=== PATIENT | female | born 1940 | race Caucasian/White ===

== ENCOUNTER 2016-06-15 14:23 | Inpatient (IN) | payer MEDICARE ==
[~2016-06-15] VITALS: Ht 157.5 cm; Wt 96.3 kg
[~2016-06-15 14:23] MED LIST: ALEVE ARTHRITI220 MG PO; AMARYL2 MG PO; AMOX/K CLAV875 M1 PO; APRESOLINE50 MG PO; ASPIRIN EC81 MG PO; FLAX SEED1000 MG PO; FLUARIX QUADRIV1 IN1 IM; HYDRALAZINE50 MG PO; LEVOTHYROXIN175 MC1 PO; LEVOTHYROXIN200 MC2 PO; LISINOPRIL20 MG PO; MELOXICAM15 MG PO; MILK OF MAG30 ML/UDC PO; PRILOSEC40 MG PO; PROAIR HFA IN; TYLENOL325 M2 PO; VERAPAMIL240 M1 PO
[2016-06-22] VITALS (8 sets, daily range): BP systolic 137–199; BP diastolic 52–146
[2016-06-22] MEDS ORDERED: STOOL SOFTENER100 M1 PO (10:20)
[2016-06-22] MEDS ORDERED: FUROSEMIDE40 MG PO (10:22)
[2016-06-22] MEDS ORDERED: KLOR-CON SPRIN10 MEQ (10:24)
--- NOTE | 2016-06-22 19:05 | NUR ---
PT. ARRIVES BY BED FROM OR STAFF. PT. IS AWAKE, ALERT, ORIENTED, BUT DROWSY. REPORTS MINIMAL PAIN AT THIS TIME. ON ARRIVAL SWELLING/EDEMA NOTED TO LT. HAND AT SITE OF PRIOR INFILTRATED IV PER OR STAFF. PT. HAS #22 TO LT. UPPER SHOULDER AREA. SURROUNDING TISSUE THERE APPEARS SWOLLEN AND EDEMATOUS. NO BLOOD RETURN AND DIFFICULT FLUSH NOTED TO LT. UPPER ARM. HIGHLY SUSPICIOUS FOR INFILTRATED IV TO THIS LOCATION WELL. PT. WITH COARSE LUNG SOUNDS EXPECIALLY TO BASES. PT. IS ABLE TO COULD WITH ONLY MINIMAL FORCE. KOVACS CATHETER NOTED WITH CLEAR YELLOW URINE ON ARRIVAL. PT. REPORTS LT. SIDED WEAKNESS FROM A PRIOR CVA. STATES SHE IS UNABLE TO WALK. SOME CONTRACTURES NOTED TO LT. HAND. IV DISCTONINUED TO LT. UPPER SHOULDER AND NEW IV PLACED TO LT. INDEX FINGER #24 X 1 ATTEMPT. PT. HAS POOR VENOUS ACCESS PER HER REPORTED HX. PT. STATES WITH MINIMAL PAIN AT THIS TIME. 3/10. LOWER EXT EDEMA NOTED. 2/3 +. ARRIVES WITH SCD'S IN PLACE. CONNECTED TO UNIT ON ARRIVAL. BP STABLE AT 160/56 ON ARRIVAL. ARRIVES WITH ICE PACK IN PLACE.
--- NOTE | 2016-06-22 21:20 | NUR ---
IV ANCEF INFUSED AT THIS TIME. NO REACTIONS NOTED. IV CONTINUES TO INFUSE WITHOUT SX OF INFILTRATION. PROVIDED WITH WATER PER HER REQUEST.
--- NOTE | 2016-06-22 22:15 | NUR ---
PT. REPOSITIONED FOR COMFORT. FLUIDS OFFERED. TOWEL ROLLED AND PLACED UNDER RT. SHOULDER. PT. DENIES PAIN AT THIS TIME. SKIN WARM AND DRY. ICE PACK REAPPLIED TO RT. SHOULDER. 800 CC CLEAR URINE DRAINED FROM KOVACS CATHETER. VSS. BP MUCH IMPROVED.
--- NOTE | 2016-06-22 23:34 | NUR ---
PT. RESTING IN BED IN NO DISTRESS. RESPS EVEN AND UNLABORED. SKIN WARM AND DRY. VSS. VOICES NO COMPLAINTS OR CONCERNS.
[2016-06-23] VITALS (12 sets, daily range): BP systolic 101–190; BP diastolic 51–118
--- NOTE | 2016-06-23 01:15 | NUR ---
PT. RESTING IN BED WITH EYES CLOSED. SNORING RESPIRATIONS. PT. REMAINS WITH AUDIBLE CONGESTIVE TYPE RESPIRATIONS. VSS. SPO2 IS 96% ON R/A LAYING FLAT, SUPINE. VSS. BP STABLE AT THIS TIME. IV FLUIDS CONTINUE TO INFUSE WITHOUT SX OF INFILTRATION OR EXTRAVASATION.
--- NOTE | 2016-06-23 03:30 | NUR ---
PT. RESTING IN BED WITH EYES CLOSED. NO DISTRESS. VSS. VOICES NO COMPLAINTS OR NEEDS AT THIS TIME. WILL CONTINUE TO MONITOR.
[2016-06-23 05:30] LABS: HEMOGLOBIN 12.8 g/dl (12.0-16.0); IMMATURE GRANULOCYTES 0.8 % (0.0-1.0); MEAN CELL VOLUME 84.7 fL CALC (80.0-100.0); MEAN CORPUSCULAR HGB 27.1 pG CALC (26.0-32.0); NEUT# 9.45 thou/uL (2.00-7.15); RED BLOOD COUNT 4.72 mill/uL (4.20-5.60); RED CELL DISTRI WIDTH 16.5 % (11.5-15.5)
--- NOTE | 2016-06-23 05:30 | NUR ---
PT. REPOSITIONED FOR COMFORT. EKG PERFORMED. BLOOD SAMPLES OBTAINED AND SENT TO LAB. PT. MEDICATED FOR PAIN AND LINENS CHANGED UNDER PATIENT. PT. TOLERATED WELL. ICE REAPPLIED TO RT. SHOULDER. IV FLUIDS INFUSING. ABX INFUSED WITH NO SX OF INFILTRATION OR REACTIONS. WILL CONTINUE TO MONITOR. BP STABLE.
[2016-06-23 05:50] LABS: ALBUMIN 2.5 g/dL (3.2-5.0); ALKALINE PHOSPHATASE 72 u/l (38-126); ANION GAP 10 (6-22 (CALC)); BILIRUBIN, TOTAL 0.6 mg/dL (0.0-1.4); BUN 33 mg/dL (8-23); BUN/CREATININE RATIO 62 (12-20 (CALC)); CALCIUM 8.1 mg/dL (8.4-10.2); CARBON DIOXIDE 38 mmol/l (22-30); CHLORIDE 95 mmol/l (95-108); CREATININE 0.5 mg/dL (0.5-1.0); GFR > 60 ML/MIN (>=60 (CALC)); GFR FOR AFR.AMER. > 60 ML/MIN (>=60 (CALC)); GLUCOSE 201 mg/dL (82-115); POTASSIUM 2.8 mmol/l (3.5-5.1); SGOT/AST 28 u/l (9-36); SGPT/ALT 36 u/l (11-66); SODIUM 141 mmol/l (137-146); TOTAL PROTEIN 5.1 g/dL (6.3-8.2)
--- NOTE | 2016-06-23 07:25 | NUR ---
PT RESTING IN BED, EYES OPEN ANSWERS QUESTIONS APPROPRIATELY, AM ASSESSMENT COMPLETED SEE INTERVNETIONS, SKIN WARM AND DRY, DRESSING TO R SHOULDER CLEAN DRY AND INTACT WITH MINIMAL EDEMA NOTED, R SHOULD AND EXTREMITY WARTM TO TOUCH, WITH GOOD MOBILITY AND SENSATION, DENIES NUMBESS OR TINGLING, SLING REMAINS INTACT TO LIMIT MOBILITY, PT HAS HX OF CVA WITH LEFT SIDE HEMIPARESIS NOTED, FOLWY INTACT DRAINGIN CLEAR YELLO URINE WITH CATH STAP IN PLACE, GENERALIZED EDEMA NOTED WITH 2-3+ NOTED TO BILATERAL LE, PT STATES IT IS IMPROVED OVER THE USUAL, SAFETY MEASURES REINFORCED WITH CALL GARCIA WITHN REACH,. PT IN ROOM EASILY VISIBLE FROM NURSES STATION FOR SAFETY, WILL CONTINUE TO MONITOR.
--- NOTE | 2016-06-23 07:40 | NUR ---
PT FED AM MEAL RELATED TO IMMOBILITY, TOELRATED 25% W/O INCIDENT, IVF COTNINUE ORDERED NO APPARENT DISTRESS NOTED, WILL CONTINUE TO MONITOR.
--- NOTE | 2016-06-23 08:05 | NUR ---
PT REQUESTING RING BE PLACED BACK ON HER, TRIED TO DISCOURAGE RELATED TO EDEMA AND POST OP SAFETY PT INSISTING ON HAVING IT BACK ON. PLACED BACK ON R RING FINGER AT PT INSISTANCE.
--- NOTE | 2016-06-23 08:44 | NUR ---
IN TO SEE PATIENT, PLAN OF CARE DISCUSSED, WILL CONTINUE TO MONITOR. PT REQUESTED STOOL SOFTENER AND TIA BOWMAN AWARE, ALSO AWARE OF LOW POTASSIUM WITH NEW ORDERS REC'D, WILL CONTINUE TO MONITOR
--- NOTE | 2016-06-23 10:00 | NUR ---
VISITOR AT BEDSIDE, PT DROWSY BUUT RESPONDS APPROPRIATELY.
--- NOTE | 2016-06-23 12:11 | NUR ---
VISITORS AT BEDSIDE AND ASSISTED PT WITH AFTERNOON MEAL, IVF OCNITNUE AT PRESCRIBED RATE, CALL GARCIA WITHIN REACH, WILL CONTINUE TO MONITOR
--- NOTE | 2016-06-23 15:23 | NUR ---
PT MEDICATED FOR COMPLAITNS OF PAIN EARLIER, DOZING AT THIS TIME, WILL CONTINUE TO MONITOR.
--- NOTE | 2016-06-23 15:54 | NUR ---
PT CONTINUES TO DOZE, CALL GARCIA WITHIN REACH, WILL CONTINUE TO MONITOR.
--- NOTE | 2016-06-23 16:48 | NUR ---
COMPLETE BED BATH AND PARTIAL LINEN CHANGE PROVIDED, PT TOELRATED WELL, SKIN INTACT IWHT NO BREAKDONW NOTED, PT REPOSOTIONED FOR COMFORT FREQUENTLY, CALL GARCIA WITHIN REACH, BP IMPROVED SINCE THIS AM, PT STATES SOME DISCOMFORT RELATED TO SHOULDER BUT DENIES NEED FOR PAIN MEDICATION, COMFORT MEASURES PROVIDED WILL CONTINUE TO MONITOR.
--- NOTE | 2016-06-23 18:02 | NUR ---
PT FED PM MEAL WITH 50% INTAKE SOME MILD COUGH AND THROAT CLEARING NOTED INTEMITTENTLY THRU OUT MEAL, BUT TOLERATES INTAKE WITHOUT INCIDENT, CALL GARCIA WITHIN REACH, WILL CONTINUE TO MONITOR
--- NOTE | 2016-06-23 19:00 | NUR ---
REPORT FROM AUTUMN BOYLE. ASSUMED PT. CARE.
--- NOTE | 2016-06-23 20:07 | NUR ---
PT. FOUND AWAKE, ALERT, ORIENTED X 3. SKIN WARM AND DRY. ELIANA. RESPS SHALLOW, EVEN AND UNLABORED. SPO2 92% ON RA. PROVIDED WITH WATER PER HER REQUEST. DENIES COMPLAINT OF NEED AT THIS TIME. PAIN LEVEL NOW 4/10. WILL MEDICATE PER PHYSICIAN ORDERS. 3+ LOWER EXT EDEMA TO BILAT LOWER EXT.
--- NOTE | 2016-06-23 21:15 | NUR ---
PT. REPOSITIONED FOR COMFORT. VSS. RESPS EVEN AND UNLABORED. SKIN WARM AND DRY. REMAINS AFEBRILE. WILL CONTINUE TO MONITOR.
--- NOTE | 2016-06-23 23:05 | NUR ---
PT. REPOSTIONED FOR COMFORT. TOWEL PLACED UNDER RT. SHOULDER. PT. REMAINS ORIENTED X 3. NO DISTRESS. RESPS EVEN AND UNLABORED. IV FLUIDS CONTINUE TO INFUSE ORDERED. NO SX OF INFILTRATION OR EXTRAVASATION.
[2016-06-24] VITALS: BP 143/47
--- NOTE | 2016-06-24 01:00 | NUR ---
VSS. PT. RESTING ON LT. SIDE WITH EYES CLOSED AND SNORING RESPIRATIONS. PT. DENIES COMPLAINT OR NEED A THIS TIME. BP STABLE. WILL CONTINUE TO REASSESS. GOOD DISTIL CAP REFILL, PULSES INTACT.
[2016-06-24 02:00] VITALS: BP 133/55
--- NOTE | 2016-06-24 02:45 | NUR ---
PT. RESTING WITH EYES CLOSED. VSS. RESPS EVEN AND UNLABORED. SPO2 IS 91% ON 2L NC. REMAINS WITH GOOD DISTIL PMS. VOICES NO COMPLAINTS OR CONCERNS. CALL LIGHT WITHIN REACH. WILL CONTINUE TO MONITOR.
[2016-06-24 04:00] VITALS: BP 126/60
--- NOTE | 2016-06-24 04:30 | NUR ---
PT. CONTINUES TO REST WITH EYES CLOSED AND SNORING RESPIRATIONS. VOICES NO COMPLAINT OF NEED AT THIS TIME. CALL LIGHT WITHIN REACH. IV FLUIDS CONTINUE TO INFUSE WITHOUT SX OF INFILTRATION OR EXTRAVASATION. VITAL SIGNS STABLE. RESPS EVEN AND UNLABORED, SPO2 AT 90-92%.
[2016-06-24 06:00] VITALS: BP 110/57
--- NOTE | 2016-06-24 06:15 | NUR ---
PT. AROUSABLE TO LIGHT VERBAL STIMULI. MEDICATED PER ORDERS. DENIES COMPLAINTS OF PAIN OR NEED. PROVIDED WITH PO FLUIDS PER HER REQUEST. SLING REMAINS INTACT WITH GOOD DISTIL CAP REFILL AND PMS. DRESSING TO RT. SHOULDER REMAINS CLEAN, DRY, INTACT. IV FLUIDS CONTINUE TO INFUSE AT ORDERED RATE. PT. REPOSITIONED FOR COMFORT.
--- NOTE | 2016-06-24 07:32 | NUR ---
PATIENT IN BED AWAKE. RESP EVEN AND UNLABORED. NO S/S OF DISTRESS NOTED. PATIENT DENIES ANY NEEDS OR PAIN. CALL LIGHT IN REACH. ENCOURAGED TO CALL FOR ANY NEEDS.
[2016-06-24 08:00] VITALS: BP 145/59
[2016-06-24 10:00] VITALS: BP 115/63
--- NOTE | 2016-06-24 10:00 | NUR ---
REPORT CALLED TO LORA AT [facility].
[2016-06-24 10:25] LABS: HEMATOCRIT 38.3 % (37.0-47.0); HEMOGLOBIN 12.1 g/dl (12.0-16.0); IMMATURE GRANULOCYTES 1.4 % (0.0-1.0); MEAN CELL VOLUME 86.5 fL CALC (80.0-100.0); MEAN CORPUSCULAR HGB 27.3 pG CALC (26.0-32.0); MEAN CORPUSCULAR HGB CONC 31.6 g/L CALC (32.0-36.0); NEUT# 9.74 thou/uL (2.00-7.15); RED BLOOD COUNT 4.43 mill/uL (4.20-5.60); RED CELL DISTRI WIDTH 16.4 % (11.5-15.5)
--- NOTE | 2016-06-24 10:42 | NUR ---
PATIENT TRANSFERRED FROM BED TO WHEELCHAIR WITH REINALDO LIFT. PATIENT TOLERATES WELL. DENIES ANY PAIN. CALL LIGHT IN REACH. PATIENT AWAITING TRANSPORT TO REHAB FACILITY.
[2016-06-24 10:46] LABS: ANION GAP 8 (6-22 (CALC)); BUN 28 mg/dL (8-23); BUN/CREATININE RATIO 56 (12-20 (CALC)); CALCIUM 8.2 mg/dL (8.4-10.2); CARBON DIOXIDE 37 mmol/l (22-30); CHLORIDE 97 mmol/l (95-108); CREATININE 0.5 mg/dL (0.5-1.0); GFR > 60 ML/MIN (>=60 (CALC)); GFR FOR AFR.AMER. > 60 ML/MIN (>=60 (CALC)); GLUCOSE 156 mg/dL (82-115); POTASSIUM 3.1 mmol/l (3.5-5.1); SODIUM 139 mmol/l (137-146)
--- NOTE | 2016-06-24 10:52 | NUR ---
Discharge instructions given. Patient verbalizes understanding of same. Discharged in stable condition via Wheelchair to [facility] with staff. All belongings sent with pt.
== END 2016-06-24 10:50 | DRG 483 ==
LOC: ENPENDDIS → MS2 06-22 07:30 → ICU 06-22 10:21 → MS2 06-22 10:21 → ICU 06-22 19:05
PROVIDERS: ADMIT Orthopaedic Surgery; ATTEND Internal Medicine Geriatric Medicine
PROC: 0RRJ00Z Replacement of Right Shoulder Joint with Reverse Ball and Socket Synthetic Substitute, Open Approach (ICD-10-PCS; principal; 2016-06-22)
DX: M24.411 Recurrent dislocation, right shoulder (principal); I69.954 Hemiplegia and hemiparesis following unspecified cerebrovascular disease affecting left non-dominant side; J44.9 Chronic obstructive pulmonary disease, unspecified; E11.9 Type 2 diabetes mellitus without complications; M19.011 Primary osteoarthritis, right shoulder; M75.121 Complete rotator cuff tear or rupture of right shoulder, not specified as traumatic; E66.01 Morbid (severe) obesity due to excess calories; M24.111 Other articular cartilage disorders, right shoulder; I10 Essential (primary) hypertension; I25.10 Atherosclerotic heart disease of native coronary artery without angina pectoris; K59.00 Constipation, unspecified; Z68.36 Body mass index [BMI] 36.0-36.9, adult
CPT/HCPCS: J2710